=== PATIENT | female | born 1955 | race Caucasian/White ===

== ENCOUNTER 2017-10-11 11:01 | Emergency (ER) | payer BC ==
[~2017-10-11] VITALS: Ht 165.1 cm; Wt 80.0 kg
[2017-10-11 11:07] VITALS: BP 139/92; PULSE 121; RESP 26; TEMP 98.9; O2SAT 99
--- NOTE | 2017-10-11 11:14 | PD ---
HPI Chief Complaint: Anxiety Time Seen by Provider: 11:08 Travel History International Travel<30 days: No Contact w/Intl Traveler<30days: No History of Present Illness HPI 62-year-old female arriving to the ED from upstairs where her brother is in critical condition. Patient comes down as she is hysterical regarding his condition. She complains of no medical issues other than her anxiety. Patient is extremely tearful and having difficulty speaking due to her overwhelming grief. She denies any significant medical problems. She has no known drug allergies. [facility] Social History Alcohol Use: Yes Tobacco Use: No Substance Use: No Allergies-Medications (Allergen,Severity, Reaction): Coded Allergies: No Known Allergies (Unverified , 10/11/17) Reported Meds & Prescriptions Reported Meds & Active Scripts Active No Active Prescriptions or Reported Medications Review of Systems ROS Limitations: Clinical Condition, Other: (Extreme grief and anxiety.) Except as stated in HPI: all other systems reviewed are Neg General / Constitutional: No: Fever Eyes: No: Visual changes HENT: No: Headaches Cardiovascular: No: Chest Pain or Discomfort Respiratory: No: Shortness of Breath Gastrointestinal: No: Abdominal Pain Genitourinary: No: Dysuria Musculoskeletal: No: Pain Skin: No Rash Neurologic: No: Weakness Psychiatric: No: Depression Endocrine: No: Polydipsia Hematologic/Lymphatic: No: Easy Bruising Physical Exam Exam Limitations: Clinical Condition, Other: (Overwhelming grief and anxiety.) Narrative GENERAL: Patient appears hysterical and crying and having difficulty speaking due to her grief. SKIN: Warm and dry. Normal color. Normal turgor. HEAD: Atraumatic. Normocephalic. EYES: Pupils equal and round. No scleral icterus. No injection or drainage. ENT: No nasal bleeding or discharge. Mucous membranes pink and moist. NECK: Trachea midline. Supple. CARDIOVASCULAR: Regular rate and rhythm. RESPIRATORY: No accessory muscle use. Clear to auscultation. Breath sounds equal bilaterally. MUSCULOSKELETAL: Extremities without clubbing, cyanosis, or edema. No obvious deformities. NEUROLOGICAL: Awake and alert. No obvious cranial nerve deficits. Motor grossly within normal limits. Five out of 5 muscle strength in the arms and legs. Normal speech. PSYCHIATRIC: Appropriate mood and affect; insight and judgment normal. Patient is obviously overwhelmed with the condition of her brother who is currently in ICU. Data Data Last Documented VS Vital Signs Date Time Temp Pulse Resp B/P (MAP) Pulse Ox O2 Delivery O2 Flow Rate FiO2 10/11/17 11:07 98.9 121 26 139/92 (108) 99 Orders Orders Lorazepam (Ativan) (10/11/17 11:15) [facility] Medical Decision Making Medical Screen Exam Complete: Yes Emergency Medical Condition: Yes Differential Diagnosis Acute grief reaction. Anxiety. Hysteria. Narrative Course Patient is hysterical but medically stable by exam. Patient is given 1 mg lorazepam p.o. [place] is called per patient's request. Further medical workup not felt warranted based on my physical exam. Ramp Agent arrives to see the patient at 1230 hrs. 1300 hrs., the patient is improved. Patient is felt medically stable for discharge. Patient will be given lorazepam 0.5 mg 1 every 6 hours as needed #12. Patient is encouraged to follow-up with local senior salesforce developer or primary care physician as needed. Patient can return the emergency department as needed. Diagnosis Primary Impression: Grieving Additional Impression: Anxiety Patient Instructions: Anxiety (ED), General Instructions Additional Instructions: Patient is felt medically stable for discharge. Patient will be given lorazepam 0.5 mg 1 every 6 hours as needed #12. Patient is encouraged to follow-up with local senior salesforce developer or primary care physician as needed. Patient can return the emergency department as needed. Med/Other Pt SpecificInfo: Prescription(s) given Scripts No Active Prescriptions or Reported Meds Disposition: 01 DISCHARGE HOME Condition: Stable Elia Collier Oct 11, 2017 11:14
[2017-10-11] MEDS ORDERED: LORazepam 1 MG TAB PO ONE (11:15)
[2017-10-11] MEDS ORDERED: LORA0.5T PO (12:47)
== END 2017-10-11 13:13 | disposition home or self-care (01) ==
LOC: NEPD 11:01
DX: F41.9 Anxiety disorder, unspecified (principal)
CPT/HCPCS: 99283